=== PATIENT | female | born 1955 | race Caucasian/White ===

== ENCOUNTER 2022-09-25 08:00 | Outpatient (CLI) | payer MEDICARE, MEDICAID ==
[2022-09-25 22:43] LABS: CHLAMYDIA TRACHOMATIS DNA NEGATIVE (NEGATIVE); NEISSERIA GONORRHOEAE DNA NEGATIVE (NEGATIVE); TRICHOMONAS VAGINALIS DNA NEGATIVE (NEGATIVE)
== END 2022-09-25 23:59 | disposition home or self-care (01) ==
LOC: LAB 08:00
PROVIDERS: ATTEND Physician Assistant
DX: R39.15 Urgency of urination (principal)
CPT/HCPCS: 87491; 87591; 87661

== ENCOUNTER 2022-09-29 08:00 | Outpatient (CLI) | payer MEDICARE, MEDICAID ==
[2022-09-29 20:17] LABS: BACTERIAL VAGINOSIS DNA NEGATIVE (NEGATIVE); CANDIDA GLABRATA DNA NEGATIVE (NEGATIVE); CANDIDA GROUP DNA POSITIVE (NEGATIVE); CANDIDA KRUSEI DNA NEGATIVE (NEGATIVE); TRICHOMONAS VAGINALIS DNA NEGATIVE (NEGATIVE)
== END 2022-09-29 23:59 | disposition home or self-care (01) ==
LOC: LAB.S 08:00
PROVIDERS: ATTEND Physician Assistant
DX: R39.15 Urgency of urination (principal); Z72.51 High risk heterosexual behavior
CPT/HCPCS: 81514

== ENCOUNTER 2023-04-10 21:34 | Emergency (ER) | payer MEDICARE, MEDICAID ==
--- NOTE | 2023-04-10 23:08 | ED Physician Documentation ---
History of Present Illness - Stated complaint Stated Complaint: OD - Chief complaint Chief Complaint: General - History obtained from History obtained from: Patient, Friend - Additonal information Additional information: Patient complains of generalized anxiety which she attributes to opiate withdrawal. The patient has been smoking fentanyl on a daily basis for approximately 1 and half years. Last use was approximately 24 hours ago, and her symptoms of restlessness and anxiety started earlier today. She is brought to the emergency department by her boyfriend. The boyfriend contacted [facility] earlier today and was working on getting the patient into [facility] this evening. However, the patient's symptoms became too severe to tolerate and thus he brings her to the emergency department at this time. The patient denies any other drug use, denies heavy/regular alcohol use. The boyfriend says that the patient was admitted to a different detox facility in the past and plan was for 30 day stay but patient left within 2 days of admission. The patient denies chest pain, shortness of breath, palpitations, SI, HI. Review of Systems Constitutional: reports: Myalgias. denies: Fever, Chills Cardiac: reports: Reviewed and negative Respiratory: reports: Reviewed and negative GI: reports: Reviewed and negative Neurologic: denies: Generalized weakness, Focal weakness, Numbness, Confused, Altered mental status, Headache PD PAST MEDICAL HISTORY - Past Medical History Past Medical History: Yes Psych: Depression - Present Medications Home Medications: Ambulatory Orders Medication Instructions Recorded Confirmed LORazepam [Ativan] 1 - 2 mg PO ONCE PRN #10 tablet 04/11/23 - Allergies Allergies/Adverse Reactions: Allergies Allergy/AdvReac Type Severity Reaction Status Date / Time Sulfa (Sulfonamide AdvReac Unknown Verified 04/10/23 21:45 Antibiotics) - Social History Does the pt smoke?: Yes Smoking Status: Current every day smoker Does the pt drink ETOH?: No Does the pt have substance abuse?: Yes Substance Use and Type: Other - Immunizations Immunizations are current?: No - POLST Patient has POLST: No PD ED PE NORMAL - Vitals Vital signs reviewed: Yes - General General: Alert and oriented X 3, Well developed/nourished, Other (anxious, hyperkinetic at times but follows commands and answers questions appropriately) - HEENT HEENT: PERRL, EOMI - Neck Neck: Supple, no meningeal sign - Cardiac Cardiac: RRR, No murmur - Respiratory Respiratory: No respiratory distress, Clear bilaterally - Abdomen Abdomen: Soft, Non tender Results - Vitals Vitals: Oxygen O2 Source Room air PD Medical Decision Making - ED course Complexity details: re-evaluated patient, considered differential, d/w patient ED course: Patient presents with anxiety and restlessness. The symptoms combined with her long-standing, daily fentanyl use until approximately 24 hours prior to arrival are consistent with opiate withdrawal. She is given 2 mg lorazepam IM. On reevaluation, she is no longer hyperkinetic and reports significant improvement in the anxiety. She is requesting discharge home. The patient is saying that she is interested in inpatient treatment at a facility such as [facility], and both she and her boyfriend plan to continue to pursue admission to [facility]. A fingerstick blood sugar was performed in the emergency department with a result of 111. Given lack of symptoms/signs to suggest any other acute processes (besides opiate withdrawal) such as angina, CHF exacerbation, dysrhythmia, no o ther testing is indicated at this time. For my standpoint, the patient is medically cleared for inpatient treatment should she desire to pursue this option. Per patient request and with her express permission, a copy of this medical record is faxed to [facility] to facilitate potential inpatient stay at said facility. I have electronically submitted a short course of lorazepam (1-2 mg p.o. 3 times daily as needed anxiety) to the [facility] pharmacy in [place], to be used if there is delay in getting into an appropriate detox facility. Return precautions discussed. Departure - Departure Disposition: 01 Home, Self Care Clinical Impression: Opiate withdrawal Condition: Good Instructions: ED Narcotic Abuse Prescriptions: LORazepam [Ativan] 1 - 2 mg PO ONCE PRN #10 tablet PRN Reason: Anxiety Comments: You are given medication tonight in the emergency department to help with the acute symptoms of opiate withdrawal. This medication is lorazepam (Ativan). You are given the first dose as a shot, and the second dose was given orally. Hopefully, this improves her symptoms adequately until you can get into the [facility] recovery center. I have electronically submitted a prescription for more of this medication to the [facility] pharmacy in [place]. This is to be used only as needed, as per the prescription instructions, and only if there is a delay in getting into [facility]. Forms: PCP List Discharge Date/Time: 04/11/23 01:01
[2023-04-10] MEDS ORDERED: LORazepam 2 MG/ML VIAL IM STA (23:15)
[2023-04-11] MEDS ORDERED: LORazepam 0.5 MG TABLET PO STA (00:36)
[2023-04-11 01:06] VITALS: BP 146/109; O2SAT 95
== END 2023-04-11 01:01 | disposition home or self-care (01) ==
LOC: ED 21:34
DX: F11.23 Opioid dependence with withdrawal (principal); F17.200 Nicotine dependence, unspecified, uncomplicated
CPT/HCPCS: 99283; 99284; A9270; J2060